=== PATIENT | male | born 1980 | race Caucasian/White ===

== ENCOUNTER 2017-05-08 10:49 | Emergency (ER) | payer OTHER ==
[~2017-05-08 10:49] MED LIST: METO50TA PO; PRED20 PO; ZANT150T2 PO
[2017-05-08] MEDS ORDERED: LORazepam 2 MG/ML VIAL ONE (10:57)
[2017-05-08] MEDS ORDERED: diphenhydrAMINE HCL 50 MG/ML VIAL ONE (10:57)
[2017-05-08] MEDS ORDERED: ZIPRASIDONE MESYLATE 20 MG VIAL IM ONE (10:57)
[2017-05-08] MEDS ORDERED: LORazepam 2 MG/ML VIAL IM ONE (11:00)
[2017-05-08] MEDS ORDERED: diphenhydrAMINE HCL 50 MG/ML VIAL IM ONE (11:00)
[2017-05-08 11:12] VITALS: BP 135/74; PULSE 109; RESP 22; TEMP 98; O2SAT 95
--- NOTE | 2017-05-08 11:43 | PD ---
HPI Chief Complaint: Psychiatric Symptoms Time Seen by Provider: 11:35 Travel History International Travel<30 days: No Contact w/Intl Traveler<30days: No History of Present Illness HPI 36-year-old male brought in under [place] act by law enforcement. According to the [place] act he told police that he "wanted to " and that he wanted to " kill everyone by ripping or heads off". He was combative with law enforcement. The patient was felt to be a harm to himself and others therefore police officers handcuffed him and brought him to the emergency department for psychiatric evaluation. According to the EMR patient has significant history for bipolar disorder is unclear if the patient is taking any medications. Patient was examined by me in the psychiatric J pod. At that point patient was in 4 point restraints and had already been given Ativan and Haldol. According to nursing staff upon arrival to the emergency department he was verbally abusive, threatening staff, threatening to harm himself. PFSH Past Medical History Arthritis: No Blood Disorders: No Bipolar Disorder: Yes Anxiety: Yes Depression: Yes Heart Rhythm Problems: Yes Cancer: No Cardiovascular Problems: No High Cholesterol: No Chemotherapy: No Chest Pain: No Congestive Heart Failure: No COPD: Yes Cerebrovascular Accident: No Diabetes: No Diminished Hearing: No Endocrine: No Gastrointestinal Disorders: No Genitourinary: No Headaches: No Hypertension: Yes Immune Disorder: No Musculoskeletal: No Neurologic: No Psychiatric: Yes (BIPOLAR) Respiratory: No Myocardial Infarction: No Schizophrenia: Yes Seizures: Yes (ETOH RELATED) PNEUMOCCOCAL Vaccine (Year): 4 Past Surgical History Abdominal Surgery: No AICD: No Cardiac Surgery: No Ear Surgery: No Endocrine Surgery: No Eye Surgery: No Genitourinary Surgery: No Gynecologic Surgery: No Joint Replacement: No Neurologic Surgery: No Oral Surgery: No Pacemaker: No Thoracic Surgery: No Other Surgery: No Social History Alcohol Use: Yes (VODKA DAILY) Tobacco Use: Yes (at least two ppd lately) Substance Use: Yes (MARIJUANA) Allergies-Medications (Allergen,Severity, Reaction): Coded Allergies: Penicillin (Verified Allergy, Severe, 05/07/13) Reported Meds & Prescriptions Reported Meds & Active Scripts Active Zantac (Ranitidine HCl) 150 Mg Tab 150 Mg PO BID 5 Days Prednisone 20 Mg Tab 20 Mg PO BID 4 Days Reported Metoprolol Tartrate 50 Mg Tab 50 Mg PO BID Review of Systems ROS Limitations: Psychotic Except as stated in HPI: all other systems reviewed are Neg General / Constitutional: No: Fever Physical Exam Narrative GENERAL: Alert, male, lying in bed with 4 point restraints. Patient is calm until questioned he then becomes agitated accusing staff of harming him. SKIN: Focused skin assessment warm/dry. HEAD: Atraumatic. Normocephalic. EYES: Pupils equal and round. No scleral icterus. No injection or drainage. NECK: Trachea midline. No JVD. CARDIOVASCULAR: Regular rate and rhythm. No murmur appreciated. RESPIRATORY: No accessory muscle use. Clear to auscultation. Breath sounds equal bilaterally. GASTROINTESTINAL: Abdomen soft, non-tender, nondistended. MUSCULOSKELETAL: No obvious deformities. No clubbing. No cyanosis. No edema. NEUROLOGICAL: Awake and alert. PSYCHIATRIC: Agitated and paranoid. Patient accusing staff trying to harm him Data Data Last Documented VS Vital Signs Date Time Temp Pulse Resp B/P Pulse Ox O2 Delivery O2 Flow Rate FiO2 05/09/17 06:00 84 16 112/72 99 Room Air 05/08/17 11:12 98.0 Orders Lorazepam Inj (Ativan Inj) (05/08/17 10:57) Diphenhydramine Inj (Benadryl Inj) (05/08/17 10:57) Ziprasidone Inj (Geodon Inj) (05/08/17 10:57) Restraints Violent (05/08/17 10:58) Ziprasidone Inj (Geodon Inj) (05/08/17 11:00) Diphenhydramine Inj (Benadryl Inj) (05/08/17 11:00) Lorazepam Inj (Ativan Inj) (05/08/17 11:00) Psych Screen (05/08/17 11:11) Complete Blood Count With Diff (05/08/17 11:19) Comprehensive Metabolic Panel (05/08/17 11:19) Drug Screen, Random Urine (05/08/17 11:19) Alcohol (Ethanol) (05/08/17 11:19) Salicylates (Aspirin) (05/08/17 11:19) Tylenol (Acetaminophen) (05/08/17 11:19) Diet Regular Basic (05/08/17 Dinner) Diet Regular Basic (05/09/17 Breakfast) Alcohol Withdrawal [facility] [id number] (05/09/17 09:35) Flumazenil Inj (Romazicon Inj) (05/09/17 09:45) Lorazepam (Ativan) (05/09/17 09:45) Lorazepam Inj (Ativan Inj) (05/09/17 09:45) Lorazepam (Ativan) (05/09/17 09:45) Lorazepam Inj (Ativan Inj) (05/09/17 09:45) Lorazepam Inj (Ativan Inj) (05/09/17 09:45) Lorazepam Inj (Ativan Inj) (05/09/17 09:45) ^ Seizure Precautions (05/09/17 09:35) ^ Fall Precautions (05/09/17 09:35) Thiamine (Vit B1) (Vitamin B1) (05/09/17 10:00) Folic Acid (Folate) (05/09/17 10:00) ^ Other Nursing Orders (05/09/17 09:44) Diet Regular Basic (05/09/17 Lunch) Diphenhydramine Inj (Benadryl Inj) (05/09/17 13:16) Haloperidol Inj (Haldol Inj) (05/09/17 13:21) Haloperidol Inj (Haldol Inj) (05/09/17 14:00) Diphenhydramine Inj (Benadryl Inj) (05/09/17 14:00) Lorazepam Inj (Ativan Inj) (05/09/17 14:45) Labs Laboratory Tests Test 05/08/17 05/08/17 11:00 15:10 White Blood Count 12.4 TH/MM3 Red Blood Count 5.46 MIL/MM3 Hemoglobin 16.7 GM/DL Hematocrit 48.8 % Mean Corpuscular Volume 89.3 FL Mean Corpuscular Hemoglobin 30.7 PG Mean Corpuscular Hemoglobin 34.3 % Concent Red Cell Distribution Width 13.4 % Platelet Count 240 TH/MM3 Mean Platelet Volume 9.0 FL Neutrophils (%) (Auto) 55.5 % Lymphocytes (%) (Auto) 33.1 % Monocytes (%) (Auto) 10.3 % Eosinophils (%) (Auto) 0.7 % Basophils (%) (Auto) 0.4 % Neutrophils # (Auto) 6.9 TH/MM3 Lymphocytes # (Auto) 4.1 TH/MM3 Monocytes # (Auto) 1.3 TH/MM3 Eosinophils # (Auto) 0.1 TH/MM3 Basophils # (Auto) 0.1 TH/MM3 CBC Comment DIFF FINAL Differential Comment Sodium Level 138 MEQ/L Potassium Level 4.0 MEQ/L Chloride Level 104 MEQ/L Carbon Dioxide Level 21.8 MEQ/L Anion Gap 12 MEQ/L Blood Urea Nitrogen 10 MG/DL Creatinine 1.32 MG/DL Estimat Glomerular Filtration 61 ML/MIN Rate Random Glucose 138 MG/DL Calcium Level 9.0 MG/DL Total Bilirubin 0.5 MG/DL Aspartate Amino Transf 19 U/L (AST/SGOT) Alanine Aminotransferase 30 U/L (ALT/SGPT) Alkaline Phosphatase 71 U/L Total Protein 7.9 GM/DL Albumin 4.0 GM/DL Salicylates Level LESS THAN 1.7 MG/DL Acetaminophen Level LESS THAN 2.0 MCG/ML Ethyl Alcohol Level 287 MG/DL Urine Opiates Screen NEG Urine Barbiturates Screen NEG Urine Amphetamines Screen NEG Urine Benzodiazepines Screen NEG Urine Cocaine Screen NEG Urine Cannabinoids Screen POS MDM Medical Decision Making Medical Screen Exam Complete: Yes Emergency Medical Condition: Yes Medical Record Reviewed: Yes Differential Diagnosis Psychosis, homicidal, suicidal, substance abuse mood disorder, bipolar disorder Narrative Course 36-year-old male with past medical history significant for bipolar disorder brought in under [place] act by law enforcement. He may reports that he wanted to "" and that he wanted to "kill everyone by ripping or faces off". At time of exam patient was in 4-point restraint and had been given Ativan and Haldol. He was resting comfortably on the bed and calm until questioned and examined attempted he then became agitated accusing staff of trying to harm him. Labs and urine ordered and pending. Once labs reviewed and medically cleared he will receive psych screening. Chana Jay May 08, 2017 11:43
[2017-05-08] MEDS: ZIPRASIDONE MESYLATE 20 MG VIAL IM PRN ×2 (11:45→22:14)
[2017-05-08 12:01] LABS: AUTOMATED NEUTROPHIL # 6.9 TH/MM3 (1.8-7.7); BASOPHIL # 0.1 TH/MM3 (0-0.2); BASOPHIL % 0.4 % (0.0-2.0); EOSINOPHIL # 0.1 TH/MM3 (0-0.4); EOSINOPHIL % 0.7 % (0.0-4.0); HEMATOCRIT 48.8 % (39.0-51.0); HEMO FLAGS DIFF FINAL; LYMPH % 33.1 % (9.0-44.0); LYMPHOCYTE # 4.1 TH/MM3 (1.0-4.8); MEAN CELL VOLUME 89.3 FL (80.0-100.0); MEAN CORPUSCULAR HEMOGLOBIN 30.7 PG (27.0-34.0); MEAN CORPUSCULAR HGB CONC 34.3 % (32.0-36.0); MONO % 10.3 % (0.0-8.0); NEUT % 55.5 % (16.0-70.0); PLATELET COUNT 240 TH/MM3 (150-450); RED BLOOD COUNT 5.46 MIL/MM3 (4.50-5.90); RED CELL DISTRIBUTION WIDTH 13.4 % (11.6-17.2); WHITE BLOOD COUNT 12.4 TH/MM3 (4.0-11.0)
[2017-05-08 12:09] LABS: ANION GAP 12 MEQ/L (5-15)
[2017-05-08 12:14] LABS: ALKALINE PHOSPHATASE 71 U/L (45-117); ALT (GPT) 30 U/L (12-78); AST (GOT) 19 U/L (15-37); BICARBONATE 21.8 MEQ/L (21.0-32.0); BLOOD UREA NITROGEN 10 MG/DL (7-18); CHLORIDE 104 MEQ/L (98-107); GLOMERULAR FILTRATION RATE 61 ML/MIN (>89); SODIUM (NA) 138 MEQ/L (136-145); TOTAL BILIRUBIN ADULT 0.5 MG/DL (0.2-1.0)
[2017-05-08 12:29] LABS: ACETAMINOPHEN LESS THAN 2.0 MCG/ML (10.0-30.0)
[2017-05-08 15:56] LABS: AMPHETAMINE, URINE NEG (NEG); BARBITURATES, URINE NEG (NEG); COCAINE, URINE NEG (NEG)
[2017-05-08 22:14] VITALS: BP 136/82; PULSE 101; RESP 16; O2SAT 100
[2017-05-09 02:38] VITALS: BP 142/62; PULSE 83; RESP 16; O2SAT 99
[2017-05-09 06:00] VITALS: BP 112/72; PULSE 84; RESP 16; O2SAT 99
[2017-05-09] MEDS ORDERED: LORazepam 2 MG/ML VIAL IV PUSH PRN ×4 (09:45)
[2017-05-09] MEDS ORDERED: LORazepam 2 MG TAB PO PRN (09:45)
[2017-05-09] MEDS ORDERED: FLUMAZENIL 0.5 MG/5 ML VIAL IV PUSH PRN (09:45)
[2017-05-09] MEDS ORDERED: LORazepam 1 MG TAB PO PRN (09:45)
[2017-05-09] MEDS ORDERED: FOLIC ACID 1 MG TAB PO SCH (10:00)
[2017-05-09] MEDS ORDERED: THIAMINE HCL 100 MG TAB PO SCH (10:00)
--- NOTE | 2017-05-09 11:03 | MB ---
cc: JAS PULLIAM DATE OF CONSULTATION: 05/09/2017 PHYSICIAN REQUESTING CONSULTATION Emergency Department. REASON FOR CONSULTATION [place] Act. HISTORY OF PRESENT ILLNESS Mr. Ruiz is a 36-year-old male with a reported history of bipolar illness and alcoholism, who presents under a [place] Act by law enforcement alleging that the patient told officers that he did not care if he . He also allegedly said that he wanted to kill everyone and rip off their faces. He was quite agitated during transport and tried to bite security officers. On arrival in the ED, the patient remained quite agitated and required Geodon, Ativan and Benadryl IM for management of his agitation. Reviewing the electronic medical record, I note that the patient was seen most recently in consultation by Dr. Canas, and that was in August 2016. Patient seen and examined. Chart reviewed. Case discussed with nursing staff. On my examination this morning, the nursing staff has been in contact with the patient's mother who verbalizes ongoing concern regarding the patient's belligerent and aggressive behavior. She remains in fear of him. On my examination this morning, the patient is clinically sober. He explains that he has been arguing with his mother and when she gets mad "she gets passive aggressive, which is even worse than if she were aggressive." He says that he drank heavily, almost two liters of vodka, in order in order to deal with his level of agitation at the argument that they were having. He attributes his disruptive behavior as detailed in the [place]pson Act due to alcohol use. He denies any suicidal or homicidal ideation at this time. He does describe some mood instability and says that his sleep recently has been quite poor. He denies any audiovisual hallucinations and I can elicit no delusional beliefs. The remainder of the psychiatric ROS is negative. PAST PSYCHIATRIC HISTORY The patient reports a history of bipolar illness and alcoholism. He is not currently under the care of a psychiatrist but says that his father is a physician and has been prescribing him Wellbutrin. He says that he was admitted most recently to [facility] several years ago. He denies a history of suicide attempts. FAMILY HISTORY The patient denies a family history of mental illness or suicide. CHEMICAL DEPENDENCY HISTORY The patient reports that he drank 1.75 liters of vodka yesterday. He says that he is typically not a daily drinker and denies a history of blackouts, DTs or seizures. He does not feel that his alcohol use or other substance use is out of hand. He reports regular use of cannabis and says that this helps to stabilize his mood. SOCIAL HISTORY The patient reports that he lives alone. 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 He is single with no children. He denies any or legal history. He is a restorationism. He says that he keeps a BB gun but denies any other access to firearms. PAST MEDICAL HISTORY No reported history of medical problems. REVIEW OF SYSTEMS No reported headache, vision or hearing changes, chest pain, shortness of breath, bowel or bladder issues. No other physical complaints. PHYSICAL EXAMINATION VITAL SIGNS: Temperature 98.0, pulse 84, respirations 16, blood pressure 112/72, pulse oximetry 99% on room air. The physical examination was completed by the ED provider. On my examination today, the patient appears to be in no acute physical distress. No motor abnormalities noted. No signs of intoxication or withdrawal noted. LABORATORY Laboratory is reviewed: CBC is significant for leukocytosis with a white blood cell count of 12.4. CMP is significant for mildly decreased GFR at 61 and mild hyperglycemia of 138 in a nonfasting sample. Urine toxicology is positive for cannabinoids and alcohol level was 287 on presentation here. MENTAL STATUS EXAMINATION The patient is in a hospital gown. He is fairly well-groomed. He is awake, alert and oriented to person and hospital at least. No motor abnormality is noted. Speech is within normal limits for rate, tone and volume. Language and fund of knowledge seem average. Mood is fair. The patient has been struggling with some mood instability of late he tells me. Affect is fairly full and reactive currently. Thought process is linear. No loosening of associations. No evident delusional beliefs. Denies audiovisual hallucinations. Denies suicidal or homicidal ideation. Insight and judgment seem poor. ASSESSMENT AND PLAN 1. Alcohol dependence with alcohol-induced mood disorder, F10.24. Rule out primary mood disorder such as bipolar illness. 2. Cannabis abuse, F12.10. This is a 36-year-old male with psychiatric history as detailed above who presents under a [place] Act. The patient is presently clinically sober and does admit to some recent mood instability and difficulty with sleeping. He was quite agitated yesterday both with law enforcement and on arrival in the ED, requiring Geodon. Mother reportedly remains concerned about his pattern of behavior and potential for violence. Looking at the totality of the case, I think it is most prudent at present to retain the patient under the [place] Act until such time as he can be transferred to [facility] for observation. I will initiate a CIWA protocol with Ativan for the management of any withdrawal. Thiamine and folate. Seizure and fall precautions. The patient is to be retained in the J-pod under [place] Act until he can be transferred to [facility]. Thank you very much for this consultation. The case was discussed with the RN. Jas BROWN /9:44 AM /10:55 AM NARCISO
[2017-05-09] MEDS ORDERED: diphenhydrAMINE HCL 50 MG/ML VIAL ONE (13:16)
[2017-05-09] MEDS ORDERED: HALOPERIDOL LACTATE 5 MG/ML AMP ONE (13:21)
[2017-05-09] MEDS ORDERED: HALOPERIDOL LACTATE 5 MG/ML AMP IM ONE (14:00)
[2017-05-09] MEDS ORDERED: diphenhydrAMINE HCL 50 MG/ML VIAL IM ONE (14:00)
[2017-05-09] MEDS ORDERED: LORazepam 2 MG/ML VIAL IM ONE (14:45)
== END 2017-05-09 14:23 ==
LOC: NEPJ 10:49
DX: F31.9 Bipolar disorder, unspecified (principal); I10 Essential (primary) hypertension; F20.9 Schizophrenia, unspecified; F41.8 Other specified anxiety disorders; J44.9 Chronic obstructive pulmonary disease, unspecified; F17.210 Nicotine dependence, cigarettes, uncomplicated; F12.10 Cannabis abuse, uncomplicated; R45.851 Suicidal ideations
CPT/HCPCS: 80053; 80307; 85025; 96372; 99285; J1200; J1630; J2060; J3486

== ENCOUNTER 2017-06-11 15:44 | Observation (INO) | payer SELFPAY ==
[~2017-06-11] VITALS: Ht 195.6 cm; Wt 85.0 kg
[2017-06-11] VITALS (7 sets, daily range): BP systolic 117–189; BP diastolic 70–106; PULSE 62–120; RESP 13–20; TEMP 98.4–98.8; O2SAT 98–100
--- NOTE | 2017-06-11 15:55 | PD ---
Physical Exam Date Seen by Provider: Jun 11, 2017 Time Seen by Provider: 15:54 Narrative 37 yo male here for evaluation of left sided chest pain. Going on for a week. Not better. Pain continuing. No history of heart issues. Pain is 7/10. Nothing improves it. Vitals are stable in triage. Awaiting Bed placement. Data Data Last Documented VS Vital Signs Date Time Temp Pulse Resp B/P Pulse Ox O2 Delivery O2 Flow Rate FiO2 06/11/17 15:47 98.7 120 20 189/106 99 Room Air [facility] Medical Record Reviewed: Yes Supervised Visit with FUAD: Joshua Friedman Jun 11, 2017 15:55
--- NOTE | 2017-06-11 16:26 | RADRPT ---
EXAM DATE/TIME: 06/11/2017 16:07 [facility] COMPARISON: CHEST SINGLE AP, August 09, 2016, 23:45. INDICATIONS : Chest pain and palpitations. MEDICAL HISTORY : Hypertension. SURGICAL HISTORY : None. ENCOUNTER: Initial ACUITY: 2 days PAIN SCORE: 10/10 LOCATION: middle chest. FINDINGS: A single view of the chest demonstrates the lungs to be symmetrically aerated without evidence of mas s, infiltrate or effusion. The cardiomediastinal contours are unremarkable. Osseous structures are intact. CONCLUSION: No acute disease. Dick Vyas MD FACR on June 11, 2017 at 16:24 Board Certified Radiologist. This report was verified electronically.
[2017-06-11 16:41] LABS: AUTOMATED NEUTROPHIL # 4.3 TH/MM3 (1.8-7.7); BASOPHIL % 0.3 % (0.0-2.0); EOSINOPHIL # 0.1 TH/MM3 (0-0.4); EOSINOPHIL % 1.8 % (0.0-4.0); HEMATOCRIT 47.8 % (39.0-51.0); HEMO FLAGS DIFF FINAL; LYMPHOCYTE # 2.3 TH/MM3 (1.0-4.8); MEAN CELL VOLUME 89.8 FL (80.0-100.0); MEAN CORPUSCULAR HEMOGLOBIN 30.9 PG (27.0-34.0); MEAN CORPUSCULAR HGB CONC 34.4 % (32.0-36.0); MONO % 6.6 % (0.0-8.0); NEUT % 59.3 % (16.0-70.0); PLATELET COUNT 189 TH/MM3 (150-450); RED BLOOD COUNT 5.32 MIL/MM3 (4.50-5.90); RED CELL DISTRIBUTION WIDTH 13.7 % (11.6-17.2); WHITE BLOOD COUNT 7.3 TH/MM3 (4.0-11.0)
[2017-06-11 17:10] LABS: ANION GAP 9 MEQ/L (5-15); BICARBONATE 29.4 MEQ/L (21.0-32.0); BLOOD UREA NITROGEN 14 MG/DL (7-18); CHLORIDE 99 MEQ/L (98-107); GLOMERULAR FILTRATION RATE 78 ML/MIN (>89); SODIUM (NA) 137 MEQ/L (136-145)
[2017-06-11 17:12] LABS: CREATINE KINASE 59 U/L (39-308)
--- NOTE | 2017-06-11 18:48 | PD ---
HPI Chief Complaint: Chest Pain Time Seen by Provider: 18:39 Travel History International Travel<30 days: No Contact w/Intl Traveler<30days: No Traveled to known affect area: No History of Present Illness HPI This patient complains of chest pain. Location is low sternal area pain. Severity is moderate. Duration is 2 weeks. The pain waxes and wanes and can last hours. Not necessarily exertional. He denies ever having cardiac testing. He is a hypertensive smoker. No alleviating factors. He is currently chest pain-free PFS Past Medical History Arthritis: No Blood Disorders: No Bipolar Disorder: Yes Anxiety: Yes Depression: Yes Heart Rhythm Problems: Yes Cancer: No Cardiovascular Problems: No High Cholesterol: No Chemotherapy: No Chest Pain: No Congestive Heart Failure: No COPD: Yes Cerebrovascular Accident: No Diabetes: No Diminished Hearing: No Endocrine: No Gastrointestinal Disorders: No Genitourinary: No Headaches: No Hypertension: Yes Immune Disorder: No Musculoskeletal: No Neurologic: No Psychiatric: Yes (BIPOLAR) Respiratory: No Myocardial Infarction: No Schizophrenia: Yes Seizures: Yes (ETOH RELATED) PNEUMOCCOCAL Vaccine (Year): 4 Past Surgical History Surgical History: No Previous Surgery Abdominal Surgery: No AICD: No Cardiac Surgery: No Ear Surgery: No Endocrine Surgery: No Eye Surgery: No Genitourinary Surgery: No Gynecologic Surgery: No Joint Replacement: No Neurologic Surgery: No Oral Surgery: No Pacemaker: No Thoracic Surgery: No Other Surgery: No Social History Alcohol Use: No (FORMER) Tobacco Use: Yes (4-5 cigarettes per day) Substance Use: No Allergies-Medications (Allergen,Severity, Reaction): Coded Allergies: No Known Allergies (Unverified , 06/11/17) Reported Meds & Prescriptions Reported Meds & Active Scripts Active Zantac (Ranitidine HCl) 150 Mg Tab 150 Mg PO BID 5 Days Prednisone 20 Mg Tab 20 Mg PO BID 4 Days Reported Metoprolol Tartrate 50 Mg Tab 50 Mg PO BID Review of Systems General / Constitutional: No: Fever Eyes: No: Visual changes HENT: No: Headaches Cardiovascular: Positive: Chest Pain or Discomfort Respiratory: No: Shortness of Breath Gastrointestinal: No: Abdominal Pain Genitourinary: No: Dysuria Musculoskeletal: No: Pain Skin: No Rash Neurologic: No: Weakness Psychiatric: No: Depression Endocrine: No: Polydipsia Hematologic/Lymphatic: No: Easy Bruising Physical Exam Narrative GENERAL: Well-nourished, well-developed patient in no apparent distress. SKIN: Focused skin assessment reveals no rash and nodules. Skin is Warm and dry. HEAD: Atraumatic. Normocephalic. EYES: Pupils equal and round. No scleral icterus. No injection or drainage. ENT: No nasal bleeding or discharge. Mucous membranes pink and moist. NECK: Trachea midline. No JVD. CARDIOVASCULAR: Regular rate and rhythm. No murmur appreciated. RESPIRATORY: No accessory muscle use. Clear to auscultation. Breath sounds equal bilaterally. GASTROINTESTINAL: Abdomen soft, non-tender, nondistended. Hepatic and splenic margins not palpable. MUSCULOSKELETAL: No obvious deformities. No clubbing. No cyanosis. No edema. NEUROLOGICAL: Awake and alert. No obvious cranial nerve deficits. Motor grossly within normal limits. Normal speech. PSYCHIATRIC: Appropriate mood and affect; insight and judgment normal. Data Data Last Documented VS Vital Signs Date Time Temp Pulse Resp B/P Pulse Ox O2 Delivery O2 Flow Rate FiO2 06/11/17 18:34 100 Room Air 06/11/17 18:30 98.8 80 13 157/89 Orders Electrocardiogram (06/11/17 15:57) Complete Blood Count With Diff (06/11/17 15:57) Basic Metabolic Panel (Bmp) (06/11/17 15:57) Ckmb (Isoenzyme) Profile (06/11/17 15:57) Troponin I (06/11/17 15:57) Chest, Single Ap (06/11/17 15:57) Iv Access Insert/Monitor (06/11/17 15:57) Ecg Monitoring (06/11/17 15:57) Oxygen Administration (06/11/17 15:57) Oximetry (06/11/17 15:57) Admit Order (Ed Use Only) (06/11/17 18:45) Labs Laboratory Tests Test 06/11/17 16:10 White Blood Count 7.3 TH/MM3 Red Blood Count 5.32 MIL/MM3 Hemoglobin 16.4 GM/DL Hematocrit 47.8 % Mean Corpuscular Volume 89.8 FL Mean Corpuscular Hemoglobin 30.9 PG Mean Corpuscular Hemoglobin 34.4 % Concent Red Cell Distribution Width 13.7 % Platelet Count 189 TH/MM3 Mean Platelet Volume 8.5 FL Neutrophils (%) (Auto) 59.3 % Lymphocytes (%) (Auto) 32.0 % Monocytes (%) (Auto) 6.6 % Eosinophils (%) (Auto) 1.8 % Basophils (%) (Auto) 0.3 % Neutrophils # (Auto) 4.3 TH/MM3 Lymphocytes # (Auto) 2.3 TH/MM3 Monocytes # (Auto) 0.5 TH/MM3 Eosinophils # (Auto) 0.1 TH/MM3 Basophils # (Auto) 0.0 TH/MM3 CBC Comment DIFF FINAL Differential Comment Sodium Level 137 MEQ/L Potassium Level 4.0 MEQ/L Chloride Level 99 MEQ/L Carbon Dioxide Level 29.4 MEQ/L Anion Gap 9 MEQ/L Blood Urea Nitrogen 14 MG/DL Creatinine 1.06 MG/DL Estimat Glomerular Filtration 78 ML/MIN Rate Random Glucose 153 MG/DL Calcium Level 9.2 MG/DL Total Creatine Kinase 59 U/L Troponin I LESS THAN 0.02 NG/ML MDM Medical Decision Making Medical Screen Exam Complete: Yes Emergency Medical Condition: Yes Medical Record Reviewed: Yes Differential Diagnosis Differential diagnosis includes IN, angina, pericarditis, pleurisy, GERD, anxiety. Narrative Course I have reviewed the patient's electronic medical record. IV placed I reviewed the EKG shows sinus rhythm with no ST elevation I reviewed the chest x-ray is normal Extended cardiac monitoring shows sinus rhythm without ectopy CBC is normal Metabolic profile is normal CK is normal Troponin is normal Coagulation studies are normal ER workup is negative. I think he is a low risk patient at age 37 but as noted is a hypertensive smoker so has multiple risk factors. He will be a 23 hour observation in the chest pain center in order to rule out cardiac cause of his symptoms. I will give him an aspirin Diagnosis Primary Impression: Chest pain in adult Admitting Information Admitting Physician Requests: Observation Jon Santiago MD Jun 11, 2017 18:48
[2017-06-11] MEDS ORDERED: SODIUM CHLORIDE 0.9% FLUSH 10 ML FLUSH IV FLUSH PRN (19:00)
[2017-06-11] MEDS ORDERED: ONDANSETRON HCL 4 MG/2 ML VIAL IV PRN (19:00)
[2017-06-11] MEDS: METOPROLOL TARTRATE 25 MG TAB PO SCH ×2 (20:13→21:00)
[2017-06-11] MEDS: SODIUM CHLORIDE 0.9% FLUSH 10 ML FLUSH IV FLUSH SCH (21:00)
[2017-06-11 21:39] LABS: CREATINE KINASE 60 U/L (39-308)
[2017-06-12 00:46] VITALS: PULSE 72
[2017-06-12 01:35] LABS: CREATINE KINASE 68 U/L (39-308)
[2017-06-12 04:32] VITALS: BP 115/68; PULSE 69; RESP 20; TEMP 98.6; O2SAT 96
[2017-06-12 04:41] VITALS: PULSE 60
[2017-06-12 07:29] VITALS: BP 127/73; PULSE 71; RESP 16; TEMP 98.3; O2SAT 98
[2017-06-12 07:38] VITALS: PULSE 64
[2017-06-12 07:52] VITALS: O2SAT 99
[2017-06-12] MEDS: SODIUM CHLORIDE 0.9% FLUSH 10 ML FLUSH IV FLUSH SCH (08:22)
[2017-06-12] MEDS ORDERED: ASPIRIN 325 MG TAB PO SCH (09:00)
--- NOTE | 2017-06-12 10:56 | TR ---
Date Performed: 06/12/2017 Time Performed: 09:38:30 DOCTOR: Vance Castro DRUG LIST: CLINICAL HISTORY: REASON FOR TEST: REASON FOR ENDING: OBSERVATION: CONCLUSION: CAROL PROTOCOL. NO CP. TEST STOPPED AFTER EXCEEDING GOAL HR SECONDARY TO SOB AND LEG FATIGUE.Maximum ZV=182 % Max HR Achieved=91.0% Maximum UD=269/90 Total Exercise Time=8:59 COMMENTS: Conclusion: Normal treadmill exercise. No evidence of ischemia.
--- NOTE | 2017-06-12 10:59 | HHI.DCPOC ---
Discharge Care Plan Diagnosis: (1) Chest pain, atypical Goals to Promote Your Health * To prevent worsening of your condition and complications * To maintain your health at the optimal level Directions to Meet Your Goals Take your medications as prescribed Follow your dietary instruction Follow activity as directed Keep your appointments as scheduled Take your immunizations and boosters as scheduled If your symptoms worsen call your PCP, if no PCP go to Urgent Care Center or Emergency Room Smoking is Dangerous to Your Health. Avoid second hand smoke Call the 24-hour hour crisis hotline for domestic abuse at Vance Castro MD Jun 12, 2017 10:59
--- NOTE | 2017-06-12 11:31 | HHI.HP ---
HPI Primary Care Physician No Primary Care Physician Chief Complaint Chest pain History of Present Illness This is a 37-year-old male that presents to ED with a complaint of 2 weeks of constant left-sided chest discomfort that he describes as a heaviness. Certain movements seem to worsen. He also states that when he smokes a cigarette oh worsened. Denies shortness red nausea or diaphoresis. Review of Systems General: Patient denies fevers, chills recent, and recent travel HEENT: Patient denies headache, sore throat, difficulty swallowing. Cardiovascular: Has the chest discomfort as mentioned above. Denies sensation of heart beating rapidly or irregularly. No syncope. Denies diaphoresis. Respiratory: Denies shortness of breath or inspirational chest discomfort. Denies coughing wheezing or hemoptysis. GI: Patient denies nausea, vomiting, diarrhea, abdominal pain, bloody stools. Musculoskeletal: Patient denies joint pain or edema. Denies calf pain or edema. Neurovascular: Patient denies numbness, tingling, weakness in extremities. Denies headache. Endocrine: Denies polyuria and polydipsia. Hematologic: Denies easy bruising. Skin: Denies rash or itching. Past Family Social History Allergies: Coded Allergies: No Known Allergies (Unverified , 06/11/17) Past Medical History Bipolar disorder, hypertension, tobacco abuse. Denies hyperlipidemia, diabetes , and known CAD. Past Surgical History Noncontributory. Reported Medications Reported Meds & Active Scripts Active Reported Metoprolol Tartrate 50 Mg Tab 50 Mg PO BID Active Ordered Medications Current Medications Medications (Trade) Dose Ordered Sig/Shawn Route Start Time Stop Time Status Last Admin (NS Flush) 2 ml UNSCH PRN IV FLUSH 06/11/17 19:00 (NS Flush) 2 ml BID IV FLUSH 06/11/17 21:00 06/12/17 08:22 (Zofran Inj) 4 mg Q6H PRN IV 06/11/17 19:00 (Lopressor) 25 mg Q12HR PO 06/11/17 20:00 06/11/17 20:13 (Aspirin) 325 mg DAILY PO 06/12/17 09:00 06/12/17 08:23 Family History Denies family history of CAD. Social History Patient smokes about one quarter pack of cigarettes daily for last 6 months but prior that he smoked one pack of cigarettes daily for 10 years. He drinks alcohol couple times a month and states he drinks about a half a bottle of vodka when doing so. Occasional marijuana. Physical Exam Vital Signs Vital Signs Date Time Temp Pulse Resp B/P Pulse Ox O2 Delivery O2 Flow Rate FiO2 06/12/17 07:38 64 06/12/17 07:29 98.3 71 16 127/73 98 06/12/17 04:41 60 06/12/17 04:32 98.6 69 20 115/68 96 06/12/17 00:46 72 06/11/17 22:31 98 06/11/17 22:11 62 06/11/17 21:46 98.4 68 20 117/70 99 06/11/17 19:29 76 16 126/82 99 Room Air 06/11/17 18:34 100 Room Air 06/11/17 18:34 100 Room Air 06/11/17 18:30 98.8 80 13 157/89 100 Room Air 06/11/17 15:47 98.7 120 20 189/106 99 Room Air Physical Exam GENERAL: This is a well-nourished, well-developed patient, in no apparent distress. Patient speaks in clear complete sentences. Patient is pleasant. HEENT: Head is atraumatic and normocephalic. Neck is supple without lymphadenopathy and trachea is midline. No JVD or carotid bruits. CARDIOVASCULAR: Regular rate and rhythm without murmurs, gallops, or rubs. RESPIRATORY: Clear to auscultation. Breath sounds equal bilaterally. No wheezes , rales, or rhonchi. Chest wall is tender. No use of accessory muscles. GASTROINTESTINAL: Abdomen is nontender, nondistended. Abdomen soft. No obvious pulsatile mass or bruit. No CVA tenderness. Strong femoral pulses bilaterally. Normal bowel sounds in all quadrants. MUSCULOSKELETAL: Patient is moving upper and lower extremities freely. No calf tenderness or edema, no Homans sign. Strong pulses in upper and lower extremities. NEUROLOGICAL: Patient is alert and oriented. Cranial nerves 2-12 are grossly intact. No focal deficits and speech is clear. SKIN: No rash and turgor is normal. Laboratory Laboratory Tests Test 06/11/17 06/11/17 06/12/17 16:10 20:40 00:36 White Blood Count 7.3 Red Blood Count 5.32 Hemoglobin 16.4 Hematocrit 47.8 Mean Corpuscular Volume 89.8 Mean Corpuscular Hemoglobin 30.9 Mean Corpuscular Hemoglobin 34.4 Concent Red Cell Distribution Width 13.7 Platelet Count 189 Mean Platelet Volume 8.5 Neutrophils (%) (Auto) 59.3 Lymphocytes (%) (Auto) 32.0 Monocytes (%) (Auto) 6.6 Eosinophils (%) (Auto) 1.8 Basophils (%) (Auto) 0.3 Neutrophils # (Auto) 4.3 Lymphocytes # (Auto) 2.3 Monocytes # (Auto) 0.5 Eosinophils # (Auto) 0.1 Basophils # (Auto) 0.0 CBC Comment DIFF FINAL Differential Comment Sodium Level 137 Potassium Level 4.0 Chloride Level 99 Carbon Dioxide Level 29.4 Anion Gap 9 Blood Urea Nitrogen 14 Creatinine 1.06 Estimat Glomerular Filtration 78 Rate Random Glucose 153 Calcium Level 9.2 Total Creatine Kinase 59 60 68 Troponin I LESS THAN 0.02 LESS THAN 0.02 LESS THAN 0.02 Result Diagram: 06/11/17 1610 06/11/17 1610 Imaging Last 24 hours Impressions Chest X-Ray 06/11/17 1557 Signed Impressions: Service Date/Time: Sunday, June 11, 2017 16:07 - CONCLUSION: No acute disease. Dick Vyas MD FACR Course EKGs are sinus rhythm without significant ST segment depressions or elevations. Assessment and Plan Assessment and Plan * Atypical chest pain: Patient has had serial cardiac enzymes and EKGs for ruling out purposes. He has been seen by Dr. Castro of cardiology in the chest pain center and underwent a nonischemic Tanner protocol ETT. He will be discharged home at this time with instructions to use anti-inflammatory, moist heat and to quit smoking. He should follow-up with PCP. * Tobacco abuse: Patient has been counseled on importance of smoking cessation. * Bipolar disorder: Patient needs to follow back with a psychiatrist to get back on medications. * Hypertension: Continue current medication. Patient is stable at this time. He is agreeable to this plan. Cleveland Navarrete Jun 12, 2017 11:31
--- NOTE | 2017-06-12 13:34 | EKG ---
Date Performed: 06/12/2017 Time Performed: 00:22:45 PTAGE: 37 years EKG: Sinus rhythm WITH SINUS ARRHYTHMIA NORMAL ECG PREVIOUS TRACING : 06/11/2017 20.01 Since previous tracing, no significant change noted DOCTOR: Vance Castro Interpretating Date/Time 06/12/2017 13:32:54
--- NOTE | 2017-06-12 13:37 | EKG ---
Date Performed: 06/11/2017 Time Performed: 20:01:06 PTAGE: 37 years EKG: Sinus rhythm NORMAL ECG PREVIOUS TRACING : 06/11/2017 16.02 Since previous tracing, no significant change noted DOCTOR: Vance Castro Interpretating Date/Time 06/12/2017 13:36:40
--- NOTE | 2017-06-12 13:38 | EKG ---
Date Performed: 06/11/2017 Time Performed: 16:02:38 PTAGE: 37 years EKG: Sinus rhythm NORMAL ECG PREVIOUS TRACING : 08/09/2016 22.56 DOCTOR: Vance Castro Interpretating Date/Time 06/12/2017 13:37:21
== END 2017-06-12 11:30 | disposition home or self-care (01) ==
LOC: NEPE 15:44 → NEDA 18:47 → NEPFCDU 21:30
PROVIDERS: ADMIT Internal Medicine Cardiovascular Disease; ATTEND Internal Medicine Cardiovascular Disease
DX: I10 Essential (primary) hypertension (principal); F31.9 Bipolar disorder, unspecified; F12.90 Cannabis use, unspecified, uncomplicated; F17.210 Nicotine dependence, cigarettes, uncomplicated; F41.9 Anxiety disorder, unspecified; J44.9 Chronic obstructive pulmonary disease, unspecified; F20.9 Schizophrenia, unspecified
CPT/HCPCS: 71010; 80048; 82550; 84484; 85025; 93005; 93017; 99285; G0378

== ENCOUNTER 2017-10-21 03:11 | Emergency (ER) | payer SELFPAY ==
[~2017-10-21] VITALS: Ht 195.6 cm; Wt 105.0 kg
[~2017-10-21 03:11] MED LIST changes: -PRED20 PO; -ZANT150T2 PO
[2017-10-21 03:14] VITALS: BP 139/82; PULSE 84; RESP 16; TEMP 98.7; O2SAT 97
[2017-10-21 03:15] VITALS: RESP 19; O2SAT 99
[2017-10-21] MEDS ORDERED: SODIUM CHLOR 0.9% 1000 ML INJ 1,000 ML IV SCH (03:28)
[2017-10-21] MEDS ORDERED: ONDANSETRON HCL 4 MG/2 ML VIAL IVP ONE (03:30)
[2017-10-21] MEDS ORDERED: MORPHINE SULFATE 4 MG/ML INJ IV PUSH ONE (03:30)
[2017-10-21] MEDS ORDERED: SODIUM CHLORIDE 0.9% FLUSH 10 ML FLUSH IV FLUSH PRN (03:30)
[2017-10-21 03:58] LABS: AUTOMATED NEUTROPHIL # 6.7 TH/MM3 (1.8-7.7); BASOPHIL # 0.1 TH/MM3 (0-0.2); BASOPHIL % 0.6 % (0.0-2.0); EOSINOPHIL # 0.2 TH/MM3 (0-0.4); EOSINOPHIL % 1.9 % (0.0-4.0); HEMATOCRIT 47.6 % (39.0-51.0); HEMOGLOBIN 16.8 GM/DL (13.0-17.0); LYMPH % 31.9 % (9.0-44.0); LYMPHOCYTE # 3.8 TH/MM3 (1.0-4.8); MEAN CELL VOLUME 89.8 FL (80.0-100.0); MEAN CORPUSCULAR HEMOGLOBIN 31.6 PG (27.0-34.0); MEAN CORPUSCULAR HGB CONC 35.2 % (32.0-36.0); MEAN PLATELET VOLUME 9.3 FL (7.0-11.0); MONO % 9.5 % (0.0-8.0); MONOCYTE # 1.1 TH/MM3 (0-0.9); NEUT % 56.1 % (16.0-70.0); PLATELET COUNT 182 TH/MM3 (150-450); RED CELL DISTRIBUTION WIDTH 13.7 % (11.6-17.2); WHITE BLOOD COUNT 11.9 TH/MM3 (4.0-11.0)
[2017-10-21 04:10] LABS: ALKALINE PHOSPHATASE 62 U/L (45-117); TOTAL BILIRUBIN ADULT 0.4 MG/DL (0.2-1.0); TOTAL PROTEIN 7.8 GM/DL (6.4-8.2)
[2017-10-21 04:12] LABS: ALT (GPT) 65 U/L (12-78); AST (GOT) 22 U/L (15-37); BICARBONATE 26.6 MEQ/L (21.0-32.0); BLOOD UREA NITROGEN 14 MG/DL (7-18); CALCIUM 9.6 MG/DL (8.5-10.1); CHLORIDE 101 MEQ/L (98-107); CREATININE 1.01 MG/DL (0.60-1.30); GLOMERULAR FILTRATION RATE 83 ML/MIN (>89); GLUCOSE,RANDOM 133 MG/DL (74-106); LIPASE 132 U/L (73-393); SODIUM (NA) 135 MEQ/L (136-145)
[2017-10-21] MEDS ORDERED: DIATRIZOATE MEGLUM/DIATRIZOATE SOD 9 ML CUP ONE (04:29)
--- NOTE | 2017-10-21 05:44 | PD ---
HPI Chief Complaint: GI Complaint Time Seen by Provider: 03:28 Travel History International Travel<30 days: No Contact w/Intl Traveler<30days: No Traveled to known affect area: No History of Present Illness HPI His is a 37-year-old male who presents today with complaints of right sided lank pain and right upper abdominal pain. Patient denies any fevers, chills. He reports nausea with no vomiting or diarrhea. The patient does state that he' s been drinking heavily over the weekend. He states that when he drinks heavily he gets abdominal discomfort. States this is slightly worse than previous. He also reports that his urine is darker than normal. There is no reported history of pancreatitis. There is no reported history of abdominal surgery at this time. PFSH Past Medical History Arthritis: No Blood Disorders: No Bipolar Disorder: Yes Anxiety: Yes Depression: Yes Heart Rhythm Problems: Yes Cancer: No Cardiovascular Problems: No High Cholesterol: No Chemotherapy: No Chest Pain: No Congestive Heart Failure: No COPD: Yes Cerebrovascular Accident: No Diabetes: No Diminished Hearing: No Endocrine: No Gastrointestinal Disorders: No Genitourinary: No Headaches: No Hypertension: Yes Immune Disorder: No Musculoskeletal: No Neurologic: No Psychiatric: Yes (BIPOLAR) Respiratory: No Myocardial Infarction: No Schizophrenia: Yes Seizures: Yes (ETOH RELATED) Tetanus Vaccination: Unknown Influenza Vaccination: No PNEUMOCCOCAL Vaccine (Year): 4 ?: Not Past Surgical History Surgical History: No Previous Surgery Abdominal Surgery: No AICD: No Cardiac Surgery: No Ear Surgery: No Endocrine Surgery: No Eye Surgery: No Genitourinary Surgery: No Gynecologic Surgery: No Joint Replacement: No Neurologic Surgery: No Oral Surgery: No Pacemaker: No Thoracic Surgery: No Other Surgery: No Social History Alcohol Use: Yes Tobacco Use: Yes (4-5 cigarettes per day) Substance Use: No Allergies-Medications (Allergen,Severity, Reaction): Coded Allergies: No Known Allergies (Unverified Adverse Reaction, Unknown, 10/21/17) Reported Meds & Prescriptions Reported Meds & Active Scripts Active Ketorolac (Ketorolac Tromethamine) 10 Mg Tab 10 Mg PO TID PRN Reported Metoprolol Tartrate 50 Mg Tab 50 Mg PO BID Review of Systems Except as stated in HPI: all other systems reviewed are Neg General / Constitutional: No: Fever, Chills HENT: No: Headaches, Neck Pain Cardiovascular: No: Chest Pain or Discomfort, Palpitations Respiratory: No: Cough, Shortness of Breath Gastrointestinal: Positive: Abdominal Pain (right sided abdominal pain), No: Nausea, Vomiting Genitourinary: Positive: Other, No: Dysuria Musculoskeletal: Positive: Pain (darker urine than normal right flank), No: Weakness Neurologic: No: Weakness, Dizziness, Headache Physical Exam Narrative GENERAL: Well-nourished, well-developed patient in no acute rest her distress. SKIN: Focused skin assessment warm/dry. HEAD: Normocephalic/atraumatic. EYES: No scleral icterus. No injection or drainage. NECK: Supple, trachea midline. No JVD or lymphadenopathy. CARDIOVASCULAR: Regular rate and rhythm without murmurs, gallops, or rubs. RESPIRATORY: Breath sounds equal bilaterally. No accessory muscle use. GASTROINTESTINAL: Abdomen soft, nondistended. The patient had subjective tenderness in his right upper and right middle lateral abdominal area. There is no rebound or guarding noted. No pulsatile masses. MUSCULOSKELETAL: No cyanosis, or edema. No obvious deformities. BACK: Nontender without obvious deformity. No CVA tenderness. NEUROLOGICAL: Awake and alert. Cranial nerves II through XII intact. Motor grossly within normal limits. Five out of 5 muscle strength in all muscle groups. Normal speech. Data Data Last Documented VS Vital Signs Date Time Temp Pulse Resp B/P (MAP) Pulse Ox O2 Delivery O2 Flow Rate FiO2 10/21/17 03:15 19 99 Room Air 10/21/17 03:14 98.7 84 139/82 (101) Orders Orders Complete Blood Count With Diff (10/21/17 03:28) Comprehensive Metabolic Panel (10/21/17 03:28) Lipase (10/21/17 03:28) Urinalysis - C+S If Indicated (10/21/17 03:28) Iv Access Insert/Monitor (10/21/17 03:28) Ecg Monitoring (10/21/17 03:28) Oximetry (10/21/17 03:28) Morphine Inj (Morphine Inj) (10/21/17 03:30) Ondansetron Inj (Zofran Inj) (10/21/17 03:30) Sodium Chlor 0.9% 1000 Ml Inj (Ns 1000 M (10/21/17 03:28) Sodium Chloride 0.9% Flush (Ns Flush) (10/21/17 03:30) Ct Abd/Pel W Iv Contrast(Rout) (10/21/17 04:28) Diatrizoate Liq (Md Castellano Liroberto) (10/21/17 04:29) Oral Contrast - Adult (10/21/17 04:41) Iohexol 350 Inj (Omnipaque 350 Inj) (10/21/17 05:59) Labs Laboratory Tests Test 10/21/17 03:30 10/21/17 06:10 White Blood Count 11.9 TH/MM3 Red Blood Count 5.30 MIL/MM3 Hemoglobin 16.8 GM/DL Hematocrit 47.6 % Mean Corpuscular Volume 89.8 FL Mean Corpuscular Hemoglobin 31.6 PG Mean Corpuscular Hemoglobin Concent 35.2 % Red Cell Distribution Width 13.7 % Platelet Count 182 TH/MM3 Mean Platelet Volume 9.3 FL Neutrophils (%) (Auto) 56.1 % Lymphocytes (%) (Auto) 31.9 % Monocytes (%) (Auto) 9.5 % Eosinophils (%) (Auto) 1.9 % Basophils (%) (Auto) 0.6 % Neutrophils # (Auto) 6.7 TH/MM3 Lymphocytes # (Auto) 3.8 TH/MM3 Monocytes # (Auto) 1.1 TH/MM3 Eosinophils # (Auto) 0.2 TH/MM3 Basophils # (Auto) 0.1 TH/MM3 CBC Comment DIFF FINAL Differential Comment Blood Urea Nitrogen 14 MG/DL Creatinine 1.01 MG/DL Random Glucose 133 MG/DL Total Protein 7.8 GM/DL Albumin 4.0 GM/DL Calcium Level 9.6 MG/DL Alkaline Phosphatase 62 U/L Aspartate Amino Transf (AST/SGOT) 22 U/L Alanine Aminotransferase (ALT/SGPT) 65 U/L Total Bilirubin 0.4 MG/DL Sodium Level 135 MEQ/L Potassium Level 3.6 MEQ/L Chloride Level 101 MEQ/L Carbon Dioxide Level 26.6 MEQ/L Anion Gap 7 MEQ/L Estimat Glomerular Filtration Rate 83 ML/MIN Lipase 132 U/L [facility] Medical Decision Making Medical Screen Exam Complete: Yes Emergency Medical Condition: Yes Differential Diagnosis Pyelonephritis versus renal calculus versus liver disease Narrative Course 37-year-old male presents with right sided abdominal pain and flank pain. Patient states he had heavy drinking over the weekend. The patient has no peritoneal signs. He reports his urine has been darker than normal. CT scan the pelvis with contrast shows a 3 mm right renal stone. There is no evidence of acute inflammatory changes noted. There is diverticula without diverticulitis. The patient be discharged with a prescription for Toradol. We told to drink plenty of fluids. He is instructed to follow up with his primary physician. He is also instructed to avoid alcohol. Diagnosis Primary Impression: right sided flank pain. Additional Impressions: Kidney stone on right side reported heavy alcohol use Additional Instructions: Decrease alcohol intake. Drink plenty of fluids. Follow up with her primary care physician. Med/Other Pt SpecificInfo: Prescription(s) given Scripts Ketorolac (Ketorolac) 10 Mg Tab 10 MG PO TID Y for Pain Management, #12 TAB 0 Refills Prov: Jim Schmidt MD 10/21/17 Disposition: 01 DISCHARGE HOME Condition: Stable Jim Schmidt MD Oct 21, 2017 05:44
[2017-10-21] MEDS ORDERED: IOHEXOL 350 MG/ML 10 ML VIAL (for RAD DIAG) IVCONTRAST ONE (05:59)
--- NOTE | 2017-10-21 06:29 | RADRPT ---
EXAM DATE/TIME: 10/21/2017 05:43 [place] COMPARISON: No previous studies available for comparison. INDICATIONS : Abdomen pain. IV CONTRAST: 100 cc Omnipaque 350 (iohexol) IV ORAL CONTRAST: Prescribed oral contrast ingested. RADIATION DOSE: 9.96 CTDIvol (mGy) MEDICAL HISTORY : Hypertension. Cardiovascular disease SURGICAL HISTORY : None. ENCOUNTER: Initial ACUITY: 1 day PAIN SCALE: 5/10 LOCATION: Bilateral abdomen. TECHNIQUE: Volumetric scanning of the abdomen and pelvis was performed. Using automated exposure control and ad justment of the mA and/or kV according to patient size, radiation dose was kept as low as reasonably achievable to obtain optimal diagnostic quality images. DICOM format image data is available electro nically for review and comparison. FINDINGS: LOWER LUNGS: The visualized lower lungs are clear. LIVER: Homogeneous density without lesion. There is no dilation of the biliary tree. No calcified gallston es. SPLEEN: Normal size without lesion. PANCREAS: Within normal limits. KIDNEYS: There is a 3 mm nonobstructing right renal stone. No hydronephrosis is seen. ADRENAL GLANDS: Within normal limits. VASCULAR: There is no aortic aneurysm. BOWEL/MESENTERY: There is a mild hiatal hernia. The appendix is normal. There is scattered colonic diverticula in the sigmoid region. Significant inflammatory change is not seen. ABDOMINAL WALL: Within normal limits. RETROPERITONEUM: There is no lymphadenopathy. BLADDER: No wall thickening or mass. REPRODUCTIVE: Within normal limits. INGUINAL: There is no lymphadenopathy or hernia. MUSCULOSKELETAL: Within normal limits for patient age. CONCLUSION: 1. 3 mm nonobstructing right renal stone. 2. Mild hiatal hernia. 3. There a few scattered colonic diverticula without inflammatory change. Héctor Rodriguez MD on October 21, 2017 at 6:26 Board Certified Radiologist. This report was verified electronically.
[2017-10-21] MEDS ORDERED: KETO10 PO (06:44)
[2017-10-21 07:08] LABS: BILIRUBIN, URINE NEG (NEG); BLOOD, URINE NEG (NEG); GLUCOSE,URINE NEG (NEG); KETONE, URINE NEG (NEG); MUCUS URINE FEW /lpf (OCC); NITRITE,URINE NEG (NEG); SQUAMOUS EPITHELIAL CELL URINE <1 /hpf (0-5); URINE COLOR YELLOW (YELLW/STRAW); URINE LEUKOCYTE ESTERASE NEG (NEG)
== END 2017-10-21 07:09 | disposition home or self-care (01) ==
LOC: NEPE 03:11
DX: N20.0 Calculus of kidney (principal); I10 Essential (primary) hypertension; F17.210 Nicotine dependence, cigarettes, uncomplicated
CPT/HCPCS: 74177; 80053; 81001; 83690; 85025; 96374; 96375; 99285; J2270; J2405; J7030; Q9963; Q9967

== ENCOUNTER 2017-11-14 14:24 | Emergency (ER) | payer SELFPAY ==
[~2017-11-14] VITALS: Ht 195.6 cm; Wt 100.0 kg
[~2017-11-14 14:24] MED LIST changes: +KETO10 PO
[2017-11-14 14:29] VITALS: BP 172/100; PULSE 99; RESP 12; TEMP 98.6; O2SAT 98
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
== END 2017-11-14 16:42 | disposition left against medical advice (07) ==
LOC: NED 14:24
DX: S71.132A Puncture wound without foreign body, left thigh, initial encounter (principal); X99.8XXA Assault by other sharp object, initial encounter
CPT/HCPCS: 99281

== ENCOUNTER 2017-11-26 11:51 | Emergency (ER) | payer SELFPAY ==
[~2017-11-26] VITALS: Ht 195.6 cm; Wt 100.0 kg
[2017-11-26 12:01] VITALS: BP 121/71; PULSE 79; RESP 18; TEMP 98.8; O2SAT 97
[2017-11-26] MEDS ORDERED: LORazepam 2 MG/ML VIAL IM ONE (13:45)
--- NOTE | 2017-11-26 13:57 | PD ---
HPI Chief Complaint: Anxiety Time Seen by Provider: 13:16 Travel History International Travel<30 days: No Contact w/Intl Traveler<30days: No Traveled to known affect area: No History of Present Illness HPI This is a 37-year-old male who presents to the emergency department with shaking and jitteriness all over ever since he took Trileptal this morning instead of his Xanax which he intended to take. He was just started on Trileptal for bipolar disorder. He says he is taking antiepileptics in the past but he's never felt this way. His symptoms are constant, moderate severity , with no associated weakness or numbness. PFSH Past Medical History Arthritis: No Blood Disorders: No Bipolar Disorder: Yes Anxiety: Yes Depression: Yes Heart Rhythm Problems: Yes Cancer: No Cardiovascular Problems: Yes (HTN) High Cholesterol: No Chemotherapy: No Chest Pain: No Congestive Heart Failure: No COPD: Yes Cerebrovascular Accident: No Diabetes: No Diminished Hearing: No Endocrine: No Gastrointestinal Disorders: No Genitourinary: No Headaches: No Hypertension: Yes Immune Disorder: No Musculoskeletal: No Neurologic: No Psychiatric: Yes (BIPOLAR) Respiratory: No Myocardial Infarction: No Schizophrenia: Yes Seizures: Yes (ETOH RELATED) PNEUMOCCOCAL Vaccine (Year): 4 Past Surgical History Abdominal Surgery: No AICD: No Cardiac Surgery: No Ear Surgery: No Endocrine Surgery: No Eye Surgery: No Genitourinary Surgery: No Gynecologic Surgery: No Joint Replacement: No Neurologic Surgery: No Oral Surgery: No Pacemaker: No Thoracic Surgery: No Other Surgery: No Social History Alcohol Use: Yes Tobacco Use: Yes (4-5 cigarettes per day) Substance Use: No Allergies-Medications (Allergen,Severity, Reaction): Coded Allergies: No Known Allergies (Unverified Adverse Reaction, Unknown, 10/21/17) Reported Meds & Prescriptions Reported Meds & Active Scripts Active Ketorolac (Ketorolac Tromethamine) 10 Mg Tab 10 Mg PO TID PRN Reported Metoprolol Tartrate 50 Mg Tab 50 Mg PO BID Review of Systems Except as stated in HPI: all other systems reviewed are Neg Physical Exam Narrative GENERAL:Well appearing, no acute distress SKIN: Focused skin assessment warm and dry. HEAD: Atraumatic. Normocephalic. EYES: Pupils equal and round. No injection or drainage. ENT: Moist mucous membranes NECK: Trachea midline. CARDIOVASCULAR: Regular rate and rhythm. No murmur appreciated. RESPIRATORY: Clear to auscultation. Breath sounds equal bilaterally. GASTROINTESTINAL: Abdomen soft, non-tender, nondistended. MUSCULOSKELETAL: No obvious deformities. NEUROLOGICAL: Awake and alert. No obvious cranial nerve deficits. Moving all extremities. PSYCHIATRIC: Appropriate mood and affect; insight and judgment normal. Data Data Last Documented VS Vital Signs Date Time Temp Pulse Resp B/P (MAP) Pulse Ox O2 Delivery O2 Flow Rate FiO2 11/26/17 12:01 98.8 79 18 121/71 (88) 97 Room Air Orders Orders Lorazepam Inj (Ativan Inj) (11/26/17 13:45) [facility] Medical Decision Making Medical Screen Exam Complete: Yes Emergency Medical Condition: Yes Differential Diagnosis Adverse medication side effect, alcohol withdrawal, anxiety Narrative Course This is a very well-appearing 37-year-old male with a history of psychiatric disease who presents to the emergency department having taken Trileptal for the first time this morning. He says it's making him feel jittery. He has normal vital signs and otherwise appears well. He was given a milligram of IM Ativan which abated his symptoms. I asked him to follow up with his psychiatric provider regarding the Trileptal and for him to defer taking it until then. Diagnosis Primary Impression: Medication side effect Qualified Codes: T88.7XXA - Unspecified adverse effect of drug or medicament, initial encounter Additional Instructions: Follow up with Hyacinth Urena in regards to psychiatric or substance related issues at: [address] [place] [id number] Med/Other Pt SpecificInfo: Med Stopped Disposition: DISCHARGE HOME Condition: Stable Mercedez Noyola MD Nov 26, 2017 13:57
== END 2017-11-26 14:16 | disposition home or self-care (01) ==
LOC: NEPD 11:51
DX: T42.1X5A Adverse effect of iminostilbenes, initial encounter (principal); F31.9 Bipolar disorder, unspecified; F41.9 Anxiety disorder, unspecified; I10 Essential (primary) hypertension; J44.9 Chronic obstructive pulmonary disease, unspecified; F20.9 Schizophrenia, unspecified; F17.210 Nicotine dependence, cigarettes, uncomplicated
CPT/HCPCS: 96372; 99284; J2060

== ENCOUNTER 2017-12-05 08:58 | Emergency (ER) | payer SELFPAY ==
[~2017-12-05] VITALS: Ht 195.6 cm; Wt 100.0 kg
[2017-12-05 09:16] VITALS: BP 119/76; PULSE 95; RESP 18; TEMP 98.7; O2SAT 100
--- NOTE | 2017-12-05 09:26 | PD ---
HPI Chief Complaint: Skin Problem Time Seen by Provider: 09:25 Travel History International Travel<30 days: No Contact w/Intl Traveler<30days: No Traveled to known affect area: No History of Present Illness HPI 37 y/o male presents to the emergency department with generalized itchy rash which started upon awakening this morning. Patient took 2 Benadryl with some mild relief. Patient denies difficulty swallowing or shortness of breath. Patient denies recent changes in food, soaps, or detergents. Patient did recently start Bactrim for "flulike symptoms and cough", which he started 3 days ago. Patient had no previous allergies to sulfa. PFSH Past Medical History Arthritis: No Blood Disorders: No Bipolar Disorder: Yes Anxiety: Yes Depression: Yes Heart Rhythm Problems: Yes Cancer: No Cardiovascular Problems: Yes High Cholesterol: No Chemotherapy: No Chest Pain: No Congestive Heart Failure: No COPD: Yes Cerebrovascular Accident: No Diabetes: No Diminished Hearing: No Endocrine: No Gastrointestinal Disorders: No Genitourinary: No Headaches: No Hypertension: Yes Immune Disorder: No Musculoskeletal: No Neurologic: No Psychiatric: Yes (BIPOLAR) Respiratory: No Myocardial Infarction: No Schizophrenia: Yes Seizures: Yes (ETOH RELATED) PNEUMOCCOCAL Vaccine (Year): 4 Past Surgical History Abdominal Surgery: No AICD: No Cardiac Surgery: No Ear Surgery: No Endocrine Surgery: No Eye Surgery: No Genitourinary Surgery: No Gynecologic Surgery: No Joint Replacement: No Neurologic Surgery: No Oral Surgery: No Pacemaker: No Thoracic Surgery: No Other Surgery: No Social History Alcohol Use: Yes Tobacco Use: Yes (4-5 cigarettes per day) Substance Use: Yes (MARIJUANA ) Allergies-Medications (Allergen,Severity, Reaction): Coded Allergies: Sulfa (Sulfonamide Antibiotics) (Verified Allergy, Unknown, Hives, 12/05/17) Reported Meds & Prescriptions Reported Meds & Active Scripts Active Reported Metoprolol Tartrate 100 Mg Tab 100 Mg PO BID Review of Systems Except as stated in HPI: all other systems reviewed are Neg General / Constitutional: Positive: Chills, No: Fever Eyes: No: Visual changes HENT: No: Headaches Cardiovascular: No: Chest Pain or Discomfort Respiratory: Positive: Cough, No: Shortness of Breath, Wheezing (Recent.) Gastrointestinal: No: Nausea, Vomiting, Diarrhea, Abdominal Pain Genitourinary: No: Dysuria Musculoskeletal: No: Pain Skin: Positive Rash, Positive Itching, No Dryness, No Lumps Neurologic: No: Weakness Psychiatric: No: Depression Endocrine: No: Polydipsia Hematologic/Lymphatic: No: Easy Bruising Physical Exam Narrative GENERAL: Patient appears in mild distress. SKIN: Warm and dry. Patient has generalized erythematous raised rash consistent with sulfa reaction. No significant hives or open wounds. HEAD: Atraumatic. Normocephalic. EYES: Pupils equal and round. No scleral icterus. No injection or drainage. ENT: No nasal bleeding or discharge. Mucous membranes pink and moist. Pharynx is clear. Airway is patent. No significant swelling is noted. TMs are clear bilaterally. No sinus drainage or tenderness. NECK: Trachea midline. Supple nontender without significant lymphadenopathy. CARDIOVASCULAR: Regular rate and rhythm. RESPIRATORY: No accessory muscle use. Clear to auscultation. Breath sounds equal bilaterally. GASTROINTESTINAL: Abdomen soft, non-tender, nondistended. Hepatic and splenic margins not palpable. MUSCULOSKELETAL: Extremities without clubbing, cyanosis, or edema. No obvious deformities. NEUROLOGICAL: Awake and alert. No obvious cranial nerve deficits. Motor grossly within normal limits. Five out of 5 muscle strength in the arms and legs. Normal speech. PSYCHIATRIC: Appropriate mood and affect; insight and judgment normal. Data Data Last Documented VS Vital Signs Date Time Temp Pulse Resp B/P (MAP) Pulse Ox O2 Delivery O2 Flow Rate FiO2 12/05/17 11:03 126/68 (87) 12/05/17 10:50 89 16 98 Room Air 12/05/17 09:16 98.7 Orders Orders Complete Blood Count With Diff (12/05/17 09:29) Comprehensive Metabolic Panel (12/05/17 09:29) Ecg Monitoring (12/05/17 09:29) Iv Access Insert/Monitor (12/05/17 09:29) Oximetry (12/05/17 09:29) Diphenhydramine Inj (Benadryl Inj) (12/05/17 09:30) Methylprednisolone So Succ Inj (Solumedr (12/05/17 09:30) Sodium Chlor 0.9% 1000 Ml Inj (Ns 1000 M (12/05/17 09:29) Sodium Chloride 0.9% Flush (Ns Flush) (12/05/17 09:30) Chest, Single Ap (12/05/17 09:32) Labs Laboratory Tests Test 12/05/17 09:45 White Blood Count 12.8 TH/MM3 Red Blood Count 5.30 MIL/MM3 Hemoglobin 17.2 GM/DL Hematocrit 48.7 % Mean Corpuscular Volume 91.9 FL Mean Corpuscular Hemoglobin 32.5 PG Mean Corpuscular Hemoglobin Concent 35.3 % Red Cell Distribution Width 14.4 % Platelet Count 262 TH/MM3 Mean Platelet Volume 9.3 FL Neutrophils (%) (Auto) 73.6 % Lymphocytes (%) (Auto) 17.0 % Monocytes (%) (Auto) 8.7 % Eosinophils (%) (Auto) 0.2 % Basophils (%) (Auto) 0.5 % Neutrophils # (Auto) 9.4 TH/MM3 Lymphocytes # (Auto) 2.2 TH/MM3 Monocytes # (Auto) 1.1 TH/MM3 Eosinophils # (Auto) 0.0 TH/MM3 Basophils # (Auto) 0.1 TH/MM3 CBC Comment DIFF FINAL Differential Comment Blood Urea Nitrogen 7 MG/DL Creatinine 0.96 MG/DL Random Glucose 112 MG/DL Total Protein 7.4 GM/DL Albumin 3.5 GM/DL Calcium Level 9.6 MG/DL Alkaline Phosphatase 71 U/L Aspartate Amino Transf (AST/SGOT) 31 U/L Alanine Aminotransferase (ALT/SGPT) 67 U/L Total Bilirubin 0.4 MG/DL Sodium Level 135 MEQ/L Potassium Level 4.1 MEQ/L Chloride Level 101 MEQ/L Carbon Dioxide Level 20.6 MEQ/L Anion Gap 13 MEQ/L Estimat Glomerular Filtration Rate 88 ML/MIN MDM Medical Decision Making Medical Screen Exam Complete: Yes Emergency Medical Condition: Yes Differential Diagnosis Medication reaction. Rash. Cough. Narrative Course IV access is obtained and CBC, and CMP are ordered. Chest x-ray is ordered. Patient is given 125 mg Solu-Medrol IV as well as 50 mg Benadryl IV. Patient is given 1000 mL's normal saline bolus as well. Labs are unremarkable. Chest x-ray is clear. Patient given a prescription for prednisone as directed for the next 7 days. Patient should continue with Tylenol and Benadryl as needed Patient can follow-up with [facility] as needed. Diagnosis Primary Impression: Drug rash Referrals: [facility] Patient Instructions: Acute Rash (ED), General Instructions Additional Instructions: Labs are unremarkable. Chest x-ray is clear. Patient given a prescription for prednisone as directed for the next 7 days. Patient should continue with Tylenol and Benadryl as needed Patient can follow-up with [facility] as needed. Med/Other Pt SpecificInfo: Prescription(s) given Disposition: 01 DISCHARGE HOME Condition: Stable Bert Don Dec 05, 2017 09:26
[2017-12-05] MEDS ORDERED: SODIUM CHLOR 0.9% 1000 ML INJ 1,000 ML IV SCH (09:29)
[2017-12-05] MEDS ORDERED: diphenhydrAMINE HCL 50 MG/ML VIAL IVP ONE (09:30)
[2017-12-05] MEDS ORDERED: SODIUM CHLORIDE 0.9% FLUSH 10 ML FLUSH IV FLUSH PRN (09:30)
[2017-12-05] MEDS ORDERED: methylPREDNISolone SOD SUCC 125 MG/2 ML VIAL IV PUSH ONE (09:30)
[2017-12-05] MEDS ORDERED: METO100T PO (09:31)
--- NOTE | 2017-12-05 10:16 | RADRPT ---
EXAM DATE/TIME: 12/05/2017 09:48 [facility] COMPARISON: CHEST SINGLE AP, June 11, 2017, 16:07. INDICATIONS : Cough- Evaluate for pneumonia. Allergic reaction and hives to recent antibiotic. MEDICAL HISTORY : Chronic obstructive pulmonary disease. Hypertension. Cardiovascular disease SURGICAL HISTORY : None. ENCOUNTER: Initial ACUITY: 3 days PAIN SCORE: 0/10 LOCATION: Bilateral chest FINDINGS: A single view of the chest demonstrates the lungs to be symmetrically aerated without evidence of mas s, infiltrate or effusion. The cardiomediastinal contours are unremarkable. Osseous structures are intact. CONCLUSION: No acute disease. There is no evidence of pneumonia. Torito Presley MD on December 05, 2017 at 10:13 Board Certified Radiologist. This report was verified electronically.
[2017-12-05 10:21] LABS: AUTOMATED NEUTROPHIL # 9.4 TH/MM3 (1.8-7.7); BASOPHIL # 0.1 TH/MM3 (0-0.2); BASOPHIL % 0.5 % (0.0-2.0); EOSINOPHIL % 0.2 % (0.0-4.0); HEMATOCRIT 48.7 % (39.0-51.0); HEMOGLOBIN 17.2 GM/DL (13.0-17.0); LYMPHOCYTE # 2.2 TH/MM3 (1.0-4.8); MEAN CELL VOLUME 91.9 FL (80.0-100.0); MEAN CORPUSCULAR HEMOGLOBIN 32.5 PG (27.0-34.0); MEAN CORPUSCULAR HGB CONC 35.3 % (32.0-36.0); MEAN PLATELET VOLUME 9.3 FL (7.0-11.0); MONO % 8.7 % (0.0-8.0); MONOCYTE # 1.1 TH/MM3 (0-0.9); NEUT % 73.6 % (16.0-70.0); PLATELET COUNT 262 TH/MM3 (150-450); RED CELL DISTRIBUTION WIDTH 14.4 % (11.6-17.2); WHITE BLOOD COUNT 12.8 TH/MM3 (4.0-11.0)
[2017-12-05 10:23] LABS: ALT (GPT) 67 U/L (12-78)
[2017-12-05 10:25] LABS: ALBUMIN 3.5 GM/DL (3.4-5.0); AST (GOT) 31 U/L (15-37); BICARBONATE 20.6 MEQ/L (21.0-32.0); BLOOD UREA NITROGEN 7 MG/DL (7-18); CALCIUM 9.6 MG/DL (8.5-10.1); CREATININE 0.96 MG/DL (0.60-1.30); GLOMERULAR FILTRATION RATE 88 ML/MIN (>89); GLUCOSE,RANDOM 112 MG/DL (74-106)
[2017-12-05 10:50] VITALS: BP 124/66; PULSE 89; RESP 16; O2SAT 98
[2017-12-05 11:03] VITALS: BP 126/68
[2017-12-05 11:10] LABS: ALKALINE PHOSPHATASE 71 U/L (45-117); CHLORIDE 101 MEQ/L (98-107); SODIUM (NA) 135 MEQ/L (136-145); TOTAL BILIRUBIN ADULT 0.4 MG/DL (0.2-1.0); TOTAL PROTEIN 7.4 GM/DL (6.4-8.2)
[2017-12-05] MEDS ORDERED: DIPH25CA PO (11:38)
[2017-12-05] MEDS ORDERED: PRED20 PO (11:38)
[2017-12-05 12:00] VITALS: BP 123/72; PULSE 87; RESP 18; O2SAT 98
== END 2017-12-05 12:03 | disposition home or self-care (01) ==
LOC: NEPD 08:58
DX: L27.0 Generalized skin eruption due to drugs and medicaments taken internally (principal); F31.9 Bipolar disorder, unspecified; F41.9 Anxiety disorder, unspecified; J44.9 Chronic obstructive pulmonary disease, unspecified; I10 Essential (primary) hypertension; F20.9 Schizophrenia, unspecified; F17.210 Nicotine dependence, cigarettes, uncomplicated; Z88.2 Allergy status to sulfonamides
CPT/HCPCS: 71045; 80053; 85025; 96361; 96374; 96375; 99284; J1200; J2930; J7030